=== PATIENT | male | born 1975 | race American Indian/Alaskan Native ===

== ENCOUNTER 2018-03-05 22:39 | Emergency (ER) | payer SELFPAY ==
[2018-03-05 23:40] VITALS: BP 122/75
[2018-03-05] MEDS ORDERED: TYLENOL PO ONE (23:45)
[2018-03-06 00:11] LABS: Basophils # (Auto) 0.1 K/mm3 (0.0-0.1); Basophils % (Auto) 0.5 % (0.0-1.8); Eosinophils % (Auto) 0.3 % (0.0-4.3); Hematocrit 46.2 % (35.5-45.6); Hemoglobin 15.1 gm/dl (11.8-15.2); Lymphocytes # (Auto) 1.7 K/mm3 (1.2-5.4); Lymphocytes % (Auto) 13.2 % (13.4-35.0); Mean Corpuscular HGB Conc 33 % (32-34); Mean Corpuscular Hemoglobin 30 pg (28-32); Mean Corpuscular Volume 93 fl (84-94); Monocytes # (Auto) 0.8 K/mm3 (0.0-0.8); Monocytes % (Auto) 5.9 % (0.0-7.3); Platelet Count 307 K/mm3 (140-440); Red Blood Count 4.97 M/mm3 (3.65-5.03); Red Cell Distribution Width 14.4 % (13.2-15.2)
[2018-03-06 00:48] LABS: BUN/Creatinine Ratio 9; Blood Urea Nitrogen 6 mg/dL (9-20)
[2018-03-06 00:49] LABS: Alanine Aminotransferase 14 units/L (7-56); Albumin 3.8 g/dL (3.9-5); Calcium 8.1 mg/dL (8.4-10.2); Hemolysis Index 6
[2018-03-06 01:09] LABS: Bilirubin,Urine NEG (Negative); Blood,Urine LG (Negative); Color,Urine Yellow (Yellow); Mucus,Urine FEW /HPF; Protein,Urine <15 mg/dL mg/dL (Negative); Urobilinogen,Urine < 2.0 mg/dL (<2.0)
== END 2018-03-06 01:00 | disposition left against medical advice (07) ==
LOC: ED 22:39
DX: R10.9 Unspecified abdominal pain (principal); Z53.21 Procedure and treatment not carried out due to patient leaving prior to being seen by health care provider
CPT/HCPCS: 36415; 80053; 81001; 85025

== ENCOUNTER 2020-12-20 09:03 | Emergency (ER) | payer SELFPAY ==
--- NOTE | 2020-12-20 09:18 | Emergency Department Report ---
Chief Complaint: Nausea/Vomiting/Diarrhea Stated Complaint: STOMACH PAIN Time Seen by Provider: 12/20/20 09:13 - HPI History of Present Illness: nausea x 1 d p giving plasma yest too tired for work - ROS Review of Systems: nausea no vomiting no diarrhea no fever or chills ambulatory non ill nontoxic - Exam Vital Signs: normal Physical Exam: a/o x4 s1s2 lungs cta abd snt no cva tenderness MSE screening note: Focused history and physical exam performed. Due to findings the following was ordered: Patient discussed with doctor:: [facility] ED Disposition for MSE Clinical Impression: Nausea Disposition: Z MED SCREENING EXAM-LEFT Is pt being admited?: No Does the pt Need Aspirin: No Condition: Stable Forms: Work/School Release Form(ED) Time of Disposition: 09:18
[2020-12-20 09:23] VITALS: BP 150/99
== END 2020-12-20 09:20 | disposition left against medical advice (07) ==
LOC: ED 09:03
DX: R11.0 Nausea (principal); Z53.21 Procedure and treatment not carried out due to patient leaving prior to being seen by health care provider